=== PATIENT | male | born 1995 | race Caucasian/White ===

== ENCOUNTER 2019-10-19 | Emergency (ER) | payer OTHER | END 2019-10-19 15:35 | disposition home or self-care (01) | DRG 950 | DX: S01.81XD Laceration without foreign body of other part of head, subsequent encounter (principal); S01.511D Laceration without foreign body of lip, subsequent encounter; S12.9XXD Fracture of neck, unspecified, subsequent encounter; V89.2XXD Person injured in unspecified motor-vehicle accident, traffic, subsequent encounter ==